=== PATIENT | female | born 1940 | race Caucasian/White ===

== ENCOUNTER 2021-01-19 08:45 | Emergency (ER) | payer MEDICARE | END 2021-01-19 10:47 | disposition home or self-care (01) | LOC: ERS 08:45 | DX: J18.9 Pneumonia, unspecified organism (principal); K76.0 Fatty (change of) liver, not elsewhere classified; I12.9 Hypertensive chronic kidney disease with stage 1 through stage 4 chronic kidney disease, or unspecified chronic kidney disease; N18.9 Chronic kidney disease, unspecified; E03.9 Hypothyroidism, unspecified; G62.9 Polyneuropathy, unspecified | CPT/HCPCS: 76705 ==

== ENCOUNTER 2021-01-22 05:38 | Inpatient (IN) | payer MEDICARE ==
[2021-01-22] MEDS ORDERED: Acetaminophen 325 MG TAB PO PRN (07:31)
[2021-01-22] MEDS ORDERED: Acetaminophen 650 MG Suppository PR PRN (07:31)
[2021-01-22] MEDS ORDERED: Morphine 2 MG/ML VIAL SLOW IVP PRN (08:46)
[2021-01-22] MEDS ORDERED: Aspirin Chewable 81 MG TAB PO SCH (09:00)
[2021-01-22] MEDS ORDERED: Non-Formulary Item 1 EACH (Nebivolol Hcl [Nebivolol Hcl] 10 MG Tablet) PO SCH (09:00)
[2021-01-22] MEDS ORDERED: Enoxaparin Sodium 40 MG/0.4 ML SYRINGE SC SCH (09:00)
[2021-01-22] MEDS ORDERED: Non-Formulary Item 1 EACH (Levothyroxine Sodium [Levothyroxine] 75 MCG Capsule) PO SCH (09:00)
[2021-01-22] MEDS ORDERED: Lactated Ringer's 1,000 ML IV SCH (09:00)
[2021-01-22 09:23] VITALS: BMI 30.4
[2021-01-22] MEDS: Losartan 25 MG TAB PO SCH (09:46)
[2021-01-22] MEDS: Nebivolol HCl 5 MG TAB PO SCH (09:46)
[2021-01-22] MEDS: Ondansetron ODT 4 MG TAB PO PRN (09:47)
[2021-01-22] MEDS: Lactated Ringer's 1,000 ML IV SCH ×2 (10:45→20:34)
[2021-01-22] MEDS ORDERED: hydrALAZINE 20 MG/ML VIAL SLOW IVP PRN (11:05)
[2021-01-22] MEDS ORDERED: FLU VACC QS2021-22(65YR UP)/PF 240 MCG/0.7 ML SYRINGE IM ONE (12:00)
[2021-01-22] MEDS ORDERED: Sodium Chloride 0.9% 10 ML ONE (12:05)
[2021-01-22] MEDS ORDERED: Morphine 4 MG/ML VIAL ONE (12:05)
[2021-01-22] MEDS: Morphine 4 MG/ML VIAL SLOW IVP PRN ×2 (14:14→23:30)
[2021-01-22 15:27] LABS: SARS-CoV-2 NAA Rapid Test DETECTED (NotDetected)
[2021-01-22 18:57] LABS: INR-International Normal Ratio 1.1; Prothrombin Time 14.2 sec (12.0-14.7)
[2021-01-22] MEDS: Ondansetron PF 4 MG/2 ML Vial IVP PRN (20:27)
[2021-01-23] MEDS: Ondansetron PF 4 MG/2 ML Vial IVP PRN (02:53)
[2021-01-23] MEDS: Morphine 4 MG/ML VIAL SLOW IVP PRN ×2 (02:59→06:41)
[2021-01-23] MEDS: Lactated Ringer's 1,000 ML IV SCH ×3 (04:00→09:51)
[2021-01-23] MEDS: Levothyroxine Sodium 75 MCG TAB PO SCH (05:24)
[2021-01-23] MEDS: Nebivolol HCl 5 MG TAB PO SCH (05:25)
[2021-01-23 06:58] LABS: #Eosinphils 0.1 thou/uL (0.0-0.7); #Lymphocytes 1.7 thou/uL (1.20-3.40); #Monocytes 1.4 thou/uL (0.11-0.59); #Neutrophils 14.6 thou/uL (1.40-6.50); %Eosinophils 0.4 % (0.0-10.0); %Lymphocytes 9.6 % (21.0-51.0); %Monocytes 7.7 % (0.0-10.0); %Neutrophils 82.3 % (42.0-75.0); Mean Corpuscular HGB CONC 33.9 g/dL (32.0-36.0); Mean Corpuscular Hemoglobin 28.2 pg (27.0-31.0); Mean Corpuscular Volume 83.3 fL (78.0-98.0); Platelet Count 197 thou/uL (130-400); RBC Distribution Width 12.6 % (11.5-14.5); Red Blood Cell (RBC) Count 4.25 mill/uL (4.20-5.40); White Blood Cell (WBC) Count 17.7 thou/uL (4.8-10.8)
[2021-01-23 07:21] LABS: ALT (SGPT) 8 U/L (8-55); AST (SGOT) 11 U/L (5-34); Albumin 2.9 g/dL (3.4-4.8); Alkaline Phosphatase 53 U/L (40-110); Anion Gap 11 mmol/L (10-20); BUN (Urea Nitrogen) 14 mg/dL (9.8-20.1); Bilirubin, Total 0.8 mg/dL (0.2-1.2); Calc. Creatinine Clearance 52 mL/min (70-130); Calcium 8.9 mg/dL (7.8-10.44); Carbon Dioxide 24 mmol/L (23-31); Chloride 100 mmol/L (98-107); Globulin 3.1 g/dL (2.4-3.5); Glucose 121 mg/dL (83-110); Potassium 3.8 mmol/L (3.5-5.1); Sodium 131 mmol/L (136-145)
[2021-01-23] MEDS: Losartan 25 MG TAB PO SCH (07:59)
[2021-01-23] MEDS ORDERED: Ondansetron PF 4 MG/2 ML Vial ONE (08:08)
[2021-01-23] MEDS ORDERED: Sodium Bicarbonate 2.5 MEQ/5 ML VIAL ONE (08:08)
[2021-01-23] MEDS ORDERED: Midazolam HCl 2 mg/2 ml Vial ONE (08:08)
[2021-01-23] MEDS ORDERED: Fentanyl 100 MCG/2 ML VIAL ONE (08:08)
[2021-01-23] MEDS ORDERED: Enoxaparin Sodium 40 MG/0.4 ML SYRINGE SC SCH (09:00)
[2021-01-23] MEDS ORDERED: Morphine 4 MG/ML VIAL SLOW IVP SCH (10:30)
[2021-01-23] MEDS ORDERED: traMADol HCl 50 MG TAB PO SCH (10:30)
[2021-01-23] MEDS ORDERED: Acetaminophen 650 MG Suppository PR SCH (11:00)
[2021-01-23] MEDS ORDERED: Acetaminophen 325 MG/10.15 ML UDCUP PO SCH (11:15)
[2021-01-23] MEDS: Acetaminophen 325 MG TAB PO SCH ×3 (11:38→23:08)
[2021-01-23] MEDS: Ondansetron ODT 4 MG TAB PO PRN (23:21)
[2021-01-24] MEDS: Levothyroxine Sodium 75 MCG TAB PO SCH (06:03)
[2021-01-24] MEDS: Acetaminophen 325 MG TAB PO SCH ×2 (06:03→11:38)
[2021-01-24] MEDS: Lactated Ringer's 1,000 ML IV SCH (06:03)
[2021-01-24 06:31] LABS: #Eosinphils 0.2 thou/uL (0.0-0.7); #Lymphocytes 1.7 thou/uL (1.20-3.40); #Monocytes 0.6 thou/uL (0.11-0.59); %Basophils 0.3 % (0.0-1.0); %Eosinophils 2.4 % (0.0-10.0); %Lymphocytes 20.3 % (21.0-51.0); %Monocytes 7.5 % (0.0-10.0); %Neutrophils 69.6 % (42.0-75.0); Hemoglobin 11.6 g/dL (12.0-16.0); Mean Corpuscular HGB CONC 33.5 g/dL (32.0-36.0); Mean Corpuscular Hemoglobin 28.3 pg (27.0-31.0); Mean Corpuscular Volume 84.7 fL (78.0-98.0); Mean Platelet Volume 9.2 fL (7.4-10.4); Platelet Count 181 thou/uL (130-400); RBC Distribution Width 12.6 % (11.5-14.5); White Blood Cell (WBC) Count 8.6 thou/uL (4.8-10.8)
[2021-01-24 06:56] LABS: ALT (SGPT) 8 U/L (8-55); AST (SGOT) 10 U/L (5-34); Albumin 2.9 g/dL (3.4-4.8); Alkaline Phosphatase 55 U/L (40-110); Anion Gap 12 mmol/L (10-20); BUN (Urea Nitrogen) 16 mg/dL (9.8-20.1); Bilirubin, Total 0.8 mg/dL (0.2-1.2); Calc. Creatinine Clearance 45 mL/min (70-130); Calcium 8.8 mg/dL (7.8-10.44); Carbon Dioxide 22 mmol/L (23-31); Chloride 100 mmol/L (98-107); Glucose 90 mg/dL (83-110); Potassium 3.9 mmol/L (3.5-5.1); Protein, Total 5.9 g/dL (5.8-8.1); Sodium 130 mmol/L (136-145)
[2021-01-24 07:16] VITALS: TEMP 98
[2021-01-24] MEDS: Losartan 25 MG TAB PO SCH (08:54)
[2021-01-24] MEDS: Nebivolol HCl 5 MG TAB PO SCH (08:54)
[2021-01-24] MEDS ORDERED: Polyethylene Glycol 3350 17 GM Packet PO SCH (10:15)
[2021-01-24 11:47] VITALS: BP 122/71
== END 2021-01-24 16:42 | disposition home health service (06) | DRG 444 ==
LOC: T4-B 07:19 → INTOOBSV 07:19 → OBSVTOIN 01-23 16:52
PROVIDERS: ADMIT Student in an Organized Health Care Education/Training Program; ATTEND Student in an Organized Health Care Education/Training Program
PROC: 8E0ZXY6 Isolation (ICD-10-PCS; 2021-01-23)
PROC: 0F9430Z Drainage of Gallbladder with Drainage Device, Percutaneous Approach (ICD-10-PCS; principal; 2021-01-24)
DX: K81.0 Acute cholecystitis (principal); U07.1 COVID-19; N17.9 Acute kidney failure, unspecified; Z28.21 Immunization not carried out because of patient refusal; N18.30 Chronic kidney disease, stage 3 unspecified; E86.0 Dehydration; M48.8X4 Other specified spondylopathies, thoracic region; M48.8X6 Other specified spondylopathies, lumbar region; E03.9 Hypothyroidism, unspecified; G62.9 Polyneuropathy, unspecified; M51.37 Other intervertebral disc degeneration, lumbosacral region; M47.817 Spondylosis without myelopathy or radiculopathy, lumbosacral region; I12.9 Hypertensive chronic kidney disease with stage 1 through stage 4 chronic kidney disease, or unspecified chronic kidney disease; R91.8 Other nonspecific abnormal finding of lung field; Z88.8 Allergy status to other drugs, medicaments and biological substances; Z79.899 Other long term (current) drug therapy; Z79.82 Long term (current) use of aspirin; Z79.890 Hormone replacement therapy; Z98.49 Cataract extraction status, unspecified eye
CPT/HCPCS: 36415; 49020; 71045; 77002; 78227; 80053; 84145; 85025; 85610; 85730; 87070; 87077; 87205; 96374; 96375; 96376; A9537; C1729; G0378; J0360; J2250; J2270; J2405; J3010; J7120; Q0162; U0002

== ENCOUNTER 2021-02-11 15:17 | Emergency (ER) | payer MEDICARE, OTHER ==
[~2021-02-11 15:17] MED LIST: Iopamidol-370 76% 500 ML 1 ML ONE
[2021-02-11 16:38] LABS: Bilirubin Negative (Negative); Blood, Urine Negative (Negative); Clarity Clear (Clear); Glucose, Urine (Dipstick) Normal (Negative); Ketone, Urine Negative (Negative); Leukocyte Negative Leu/uL (Negative); Nitrite Negative (Negative); Protein, Urine (Dipstick) Negative (Neg-Trace); Specific Gravity, Urine 1.006 (1.002-1.036); Urobilinogen Normal mg/dL (Less than 2)
[2021-02-11 17:38] LABS: #Basophils 0.1 thou/uL (0.0-0.2); #Eosinphils 0.3 thou/uL (0.0-0.7); #Lymphocytes 2.4 thou/uL (1.20-3.40); #Monocytes 0.8 thou/uL (0.11-0.59); #Neutrophils 4.9 thou/uL (1.40-6.50); %Basophils 0.7 % (0.0-1.0); %Eosinophils 3.6 % (0.0-10.0); %Lymphocytes 28.8 % (21.0-51.0); %Monocytes 9.2 % (0.0-10.0); %Neutrophils 57.7 % (42.0-75.0); Hemoglobin 12.9 g/dL (12.0-16.0); Mean Corpuscular HGB CONC 31.9 g/dL (32.0-36.0); Mean Corpuscular Hemoglobin 27.4 pg (27.0-31.0); Mean Corpuscular Volume 85.6 fL (78.0-98.0); Platelet Count 143 thou/uL (130-400); RBC Distribution Width 13.2 % (11.5-14.5); Red Blood Cell (RBC) Count 4.72 mill/uL (4.20-5.40); White Blood Cell (WBC) Count 8.4 thou/uL (4.8-10.8)
[2021-02-11 18:06] LABS: ALT (SGPT) 24 U/L (8-55); AST (SGOT) 28 U/L (5-34); Albumin 3.9 g/dL (3.4-4.8); Alkaline Phosphatase 80 U/L (40-110); Anion Gap 14 mmol/L (10-20); BUN (Urea Nitrogen) 16 mg/dL (9.8-20.1); Bilirubin, Total 0.7 mg/dL (0.2-1.2); Calc. Creatinine Clearance 0 mL/min (70-130); Carbon Dioxide 25 mmol/L (23-31); Chloride 105 mmol/L (98-107); Globulin 3.5 g/dL (2.4-3.5); Glucose 100 mg/dL (83-110); Lipase 19 U/L (8-78); Potassium 4.8 mmol/L (3.5-5.1); Protein, Total 7.4 g/dL (5.8-8.1); Sodium 139 mmol/L (136-145)
== END 2021-02-11 19:43 | disposition home or self-care (01) ==
LOC: ERS 15:17
DX: R10.13 Epigastric pain (principal); I10 Essential (primary) hypertension; E03.9 Hypothyroidism, unspecified; N18.9 Chronic kidney disease, unspecified; Z79.82 Long term (current) use of aspirin; Z79.899 Other long term (current) drug therapy
CPT/HCPCS: 36415; 74177; 80053; 81003; 83690; 85025; 93005; Q9967

== ENCOUNTER 2021-02-14 12:16 | Inpatient (IN) | payer MEDICARE, OTHER ==
[2021-02-14 17:30] LABS: #Eosinphils 0.7 thou/uL (0.0-0.7); #Lymphocytes 1.6 thou/uL (1.20-3.40); #Monocytes 0.6 thou/uL (0.11-0.59); #Neutrophils 4.2 thou/uL (1.40-6.50); %Basophils 0.5 % (0.0-1.0); %Eosinophils 9.8 % (0.0-10.0); %Lymphocytes 22.8 % (21.0-51.0); %Neutrophils 58.8 % (42.0-75.0); Hemoglobin 12.1 g/dL (12.0-16.0); Mean Corpuscular HGB CONC 32.4 g/dL (32.0-36.0); Mean Corpuscular Hemoglobin 27.4 pg (27.0-31.0); Mean Corpuscular Volume 84.6 fL (78.0-98.0); Mean Platelet Volume 10.1 fL (7.4-10.4); Platelet Count 130 thou/uL (130-400); RBC Distribution Width 13.5 % (11.5-14.5); Red Blood Cell (RBC) Count 4.42 mill/uL (4.20-5.40); White Blood Cell (WBC) Count 7.1 thou/uL (4.8-10.8)
[2021-02-14 17:51] LABS: ALT (SGPT) 287 U/L (8-55); AST (SGOT) 195 U/L (5-34); Albumin 3.7 g/dL (3.4-4.8); Alkaline Phosphatase 178 U/L (40-110); Anion Gap 16 mmol/L (10-20); BUN (Urea Nitrogen) 28 mg/dL (9.8-20.1); Bilirubin, Total 2.1 mg/dL (0.2-1.2); Calc. Creatinine Clearance 0 mL/min (70-130); Carbon Dioxide 24 mmol/L (23-31); Chloride 97 mmol/L (98-107); Globulin 3.7 g/dL (2.4-3.5); Glucose 82 mg/dL (83-110); Lipase 10 U/L (8-78); Potassium 4.2 mmol/L (3.5-5.1); Protein, Total 7.4 g/dL (5.8-8.1); Sodium 133 mmol/L (136-145)
[2021-02-14 18:17] LABS: SARS-CoV-2 NAA Rapid Test Not Detected (NotDetected)
[2021-02-14] MEDS ORDERED: Acetaminophen 325 MG TAB PO PRN (18:55)
[2021-02-14] MEDS ORDERED: Ondansetron ODT 4 MG TAB PO PRN (18:55)
[2021-02-14] MEDS ORDERED: Ondansetron PF 4 MG/2 ML Vial IVP PRN (18:55)
[2021-02-14] MEDS ORDERED: Acetaminophen 650 MG Suppository PR PRN (18:55)
[2021-02-14] MEDS ORDERED: diphenhydrAMINE 50 MG/ML VIAL IVP SCH (20:15)
[2021-02-14] MEDS ORDERED: Morphine 4 MG/ML VIAL SLOW IVP PRN (20:32)
[2021-02-14] MEDS ORDERED: Lactated Ringer's 1,000 ML IV SCH (20:45)
[2021-02-14 20:49] VITALS: BMI 28.8
[2021-02-14] MEDS: Lactated Ringer's 1,000 ML IV SCH (20:59)
[2021-02-14] MEDS ORDERED: Piperacillin/Tazobactam 3.375 GM in Sodium Chloride 0.9% 100 ML IVPB SCH (21:30)
[2021-02-15] MEDS: Piperacillin/Tazobactam 3.375 GM in Sodium Chloride 0.9% 100 ML IVPB SCH ×2 (03:05→12:39)
[2021-02-15] MEDS: Levothyroxine Sodium 75 MCG TAB PO SCH (05:43)
[2021-02-15 06:01] LABS: #Eosinphils 0.6 thou/uL (0.0-0.7); #Lymphocytes 1.6 thou/uL (1.20-3.40); #Monocytes 0.6 thou/uL (0.11-0.59); #Neutrophils 3.3 thou/uL (1.40-6.50); %Basophils 0.7 % (0.0-1.0); %Eosinophils 9.8 % (0.0-10.0); %Lymphocytes 25.6 % (21.0-51.0); %Neutrophils 53.9 % (42.0-75.0); Hemoglobin 11.3 g/dL (12.0-16.0); Mean Corpuscular HGB CONC 33.5 g/dL (32.0-36.0); Mean Corpuscular Hemoglobin 28.4 pg (27.0-31.0); Mean Corpuscular Volume 84.6 fL (78.0-98.0); Mean Platelet Volume 10.5 fL (7.4-10.4); Platelet Count 124 thou/uL (130-400); RBC Distribution Width 13.4 % (11.5-14.5); Red Blood Cell (RBC) Count 3.99 mill/uL (4.20-5.40); White Blood Cell (WBC) Count 6.2 thou/uL (4.8-10.8)
[2021-02-15 06:19] LABS: ALT (SGPT) 211 U/L (8-55); AST (SGOT) 127 U/L (5-34); Albumin 3.1 g/dL (3.4-4.8); Alkaline Phosphatase 134 U/L (40-110); Anion Gap 16 mmol/L (10-20); BUN (Urea Nitrogen) 30 mg/dL (9.8-20.1); Bilirubin, Total 1.4 mg/dL (0.2-1.2); Calc. Creatinine Clearance 20 mL/min (70-130); Calcium 9.2 mg/dL (7.8-10.44); Carbon Dioxide 21 mmol/L (23-31); Chloride 101 mmol/L (98-107); Globulin 3.1 g/dL (2.4-3.5); Glucose 71 mg/dL (83-110); Potassium 3.9 mmol/L (3.5-5.1); Protein, Total 6.2 g/dL (5.8-8.1); Sodium 134 mmol/L (136-145)
[2021-02-15] MEDS: Lactated Ringer's 1,000 ML IV SCH ×3 (06:26→15:44)
[2021-02-15] MEDS: Aspirin Chewable 81 MG TAB PO SCH (08:19)
[2021-02-15] MEDS ORDERED: Nebivolol HCl 5 MG TAB PO SCH ×2 (09:00→21:00)
[2021-02-15] MEDS ORDERED: Losartan 25 MG TAB PO SCH (09:00)
[2021-02-15 15:30] LABS: Bacteria/HPF 1+ HPF (None Seen); Bilirubin Negative (Negative); Blood, Urine Trace (Negative); Clarity Clear (Clear); Glucose, Urine (Dipstick) Normal (Negative); Ketone, Urine 40 mg/dL (Negative); Leukocyte 25 Leu/uL (Negative); Nitrite Negative (Negative); Protein, Urine (Dipstick) Negative (Neg-Trace); Specific Gravity, Urine 1.014 (1.002-1.036); Squamous Epithelial 0-3 HPF (0-3); Urobilinogen Normal mg/dL (Less than 2); pH, Urine 5.5 (5.0-9.0)
[2021-02-15 15:33] LABS: Urine Culture Reflex Yes Yes
[2021-02-15 15:43] LABS: Creatinine, Urine 81.67 mg/dL (47-110)
[2021-02-15 17:01] LABS: Anion Gap 17 mmol/L (10-20); BUN (Urea Nitrogen) 29 mg/dL (9.8-20.1); Calc. Creatinine Clearance 21 mL/min (70-130); Calcium 9.4 mg/dL (7.8-10.44); Carbon Dioxide 22 mmol/L (23-31); Chloride 102 mmol/L (98-107); Glucose 66 mg/dL (83-110); Potassium 3.9 mmol/L (3.5-5.1); Sodium 137 mmol/L (136-145)
[2021-02-15] MEDS: Nebivolol HCl 5 MG TAB PO SCH (19:57)
[2021-02-16] MEDS: Lactated Ringer's 1,000 ML IV SCH ×3 (01:56→11:58)
[2021-02-16] MEDS: Piperacillin/Tazobactam 3.375 GM in Sodium Chloride 0.9% 100 ML IVPB SCH ×2 (01:57→14:36)
[2021-02-16] MEDS: Levothyroxine Sodium 75 MCG TAB PO SCH (05:10)
[2021-02-16 05:35] LABS: Hemoglobin 11.9 g/dL (12.0-16.0); Mean Corpuscular HGB CONC 32.9 g/dL (32.0-36.0); Mean Corpuscular Hemoglobin 28.2 pg (27.0-31.0); Mean Corpuscular Volume 85.7 fL (78.0-98.0); Mean Platelet Volume 9.9 fL (7.4-10.4); Platelet Count 142 thou/uL (130-400); RBC Distribution Width 13.6 % (11.5-14.5); Red Blood Cell (RBC) Count 4.22 mill/uL (4.20-5.40); White Blood Cell (WBC) Count 6.4 thou/uL (4.8-10.8)
[2021-02-16 06:01] LABS: ALT (SGPT) 174 U/L (8-55); AST (SGOT) 89 U/L (5-34); Albumin 3.2 g/dL (3.4-4.8); Alkaline Phosphatase 121 U/L (40-110); Anion Gap 16 mmol/L (10-20); BUN (Urea Nitrogen) 21 mg/dL (9.8-20.1); Calc. Creatinine Clearance 26 mL/min (70-130); Calcium 9.4 mg/dL (7.8-10.44); Carbon Dioxide 20 mmol/L (23-31); Chloride 103 mmol/L (98-107); Globulin 3.3 g/dL (2.4-3.5); Glucose 77 mg/dL (83-110); Potassium 3.9 mmol/L (3.5-5.1); Protein, Total 6.5 g/dL (5.8-8.1); Sodium 135 mmol/L (136-145)
[2021-02-16] MEDS: Sodium Bicarbonate Tab 325 MG TAB PO SCH ×3 (08:06→20:38)
[2021-02-16] MEDS: Aspirin Chewable 81 MG TAB PO SCH (08:07)
[2021-02-16] MEDS ORDERED: Amlodipine 5 MG TAB PO SCH (15:30)
[2021-02-16] MEDS: Nebivolol HCl 5 MG TAB PO SCH (20:38)
[2021-02-17] MEDS: Piperacillin/Tazobactam 3.375 GM in Sodium Chloride 0.9% 100 ML IVPB SCH ×2 (02:58→14:15)
[2021-02-17] MEDS: Lactated Ringer's 1,000 ML IV SCH ×3 (03:00→16:14)
[2021-02-17] MEDS: Levothyroxine Sodium 75 MCG TAB PO SCH (06:05)
[2021-02-17 06:17] LABS: ALT (SGPT) 113 U/L (8-55); AST (SGOT) 49 U/L (5-34); Albumin 2.9 g/dL (3.4-4.8); Alkaline Phosphatase 97 U/L (40-110); Anion Gap 12 mmol/L (10-20); BUN (Urea Nitrogen) 11 mg/dL (9.8-20.1); Bilirubin, Total 0.8 mg/dL (0.2-1.2); Calc. Creatinine Clearance 42 mL/min (70-130); Calcium 8.8 mg/dL (7.8-10.44); Carbon Dioxide 24 mmol/L (23-31); Chloride 107 mmol/L (98-107); Glucose 98 mg/dL (83-110); Potassium 3.7 mmol/L (3.5-5.1); Protein, Total 5.9 g/dL (5.8-8.1); Sodium 139 mmol/L (136-145)
[2021-02-17] MEDS ORDERED: Amlodipine 5 MG TAB PO SCH ×2 (09:00→16:15)
[2021-02-17] MEDS ORDERED: Bupivacaine 0.25% 10 ML VIAL ONE (10:02)
[2021-02-17] MEDS ORDERED: Lidocaine 1% w/Epinephrine 1:100K 20 ML VIAL ONE (10:02)
[2021-02-17] MEDS ORDERED: SUGAMMADEX SODIUM 200 MG/2 ML VIAL ONE (10:03)
[2021-02-17] MEDS ORDERED: Fentanyl 100 MCG/2 ML VIAL ONE ×2 (10:03→12:49)
[2021-02-17] MEDS ORDERED: Iothalamate Meglumine 60% 50 ML VIAL FS ONE (10:14)
[2021-02-17] MEDS ORDERED: Metoprolol Tartrate 5 MG/5 ML VIAL ONE (11:16)
[2021-02-17] MEDS ORDERED: Glycopyrrolate 0.2 MG/ML 5 ML SYRINGE ONE (11:16)
[2021-02-17] MEDS ORDERED: Ondansetron PF 4 MG/2 ML Vial ONE (11:16)
[2021-02-17] MEDS ORDERED: Lidocaine 1% PF 5 ML VIAL ONE (11:16)
[2021-02-17] MEDS ORDERED: PROPOFOL 200 MG/20 ML VIAL ONE (11:16)
[2021-02-17] MEDS ORDERED: Rocuronium Bromide 10 MG/ML (10ML VIAL) ONE (11:16)
[2021-02-17] MEDS ORDERED: Labetalol HCl 100 MG/20 ML VIAL ONE (11:16)
[2021-02-17] MEDS ORDERED: Dexamethasone 20 MG/5 ML VIAL ONE (11:16)
[2021-02-17] MEDS ORDERED: Ondansetron HCl/PF 4 MG/2 ML Vial IVP PRN (12:04)
[2021-02-17] MEDS ORDERED: Promethazine HCl 25 MG/ML VIAL IM PRN (12:04)
[2021-02-17] MEDS ORDERED: Promethazine HCl 25 MG/ML VIAL IVPB PRN (12:04)
[2021-02-17] MEDS ORDERED: HYDROcodone/Acetaminophen 5/325 mg Tablet PO PRN (12:05)
[2021-02-17] MEDS ORDERED: hydrALAZINE 20 MG/ML VIAL ONE ×2 (13:05→13:23)
[2021-02-17] MEDS: Aspirin Chewable 81 MG TAB PO SCH (14:11)
[2021-02-17] MEDS: Sodium Bicarbonate Tab 325 MG TAB PO SCH ×3 (14:11→21:23)
[2021-02-17] MEDS: Morphine 4 MG/ML VIAL SLOW IVP PRN ×3 (14:13→23:30)
[2021-02-17] MEDS: Nebivolol HCl 5 MG TAB PO SCH (21:23)
[2021-02-18] MEDS: Chloraseptic Spray 180 ml Bottle PO PRN ×2 (00:55→06:39)
[2021-02-18] MEDS: Lactated Ringer's 1,000 ML IV SCH ×2 (00:55→11:57)
[2021-02-18] MEDS: Piperacillin/Tazobactam 3.375 GM in Sodium Chloride 0.9% 100 ML IVPB SCH (01:58)
[2021-02-18] MEDS: Levothyroxine Sodium 75 MCG TAB PO SCH (06:38)
[2021-02-18 07:32] LABS: ALT (SGPT) 116 U/L (8-55); AST (SGOT) 86 U/L (5-34); Albumin 2.8 g/dL (3.4-4.8); Alkaline Phosphatase 82 U/L (40-110); Anion Gap 15 mmol/L (10-20); BUN (Urea Nitrogen) 9 mg/dL (9.8-20.1); Bilirubin, Total 0.7 mg/dL (0.2-1.2); Calc. Creatinine Clearance 46 mL/min (70-130); Calcium 8.5 mg/dL (7.8-10.44); Carbon Dioxide 22 mmol/L (23-31); Chloride 105 mmol/L (98-107); Globulin 3.4 g/dL (2.4-3.5); Glucose 94 mg/dL (83-110); Protein, Total 6.2 g/dL (5.8-8.1); Sodium 137 mmol/L (136-145)
[2021-02-18 08:21] VITALS: BP 122/67; TEMP 98.1
[2021-02-18] MEDS: Sodium Bicarbonate Tab 325 MG TAB PO SCH (08:31)
[2021-02-18] MEDS: Aspirin Chewable 81 MG TAB PO SCH (08:32)
[2021-02-18] MEDS ORDERED: Amlodipine 5 MG TAB PO SCH (09:00)
[2021-02-18 11:16] LABS: #Basophils 0.1 thou/uL (0.0-0.2); #Eosinphils 0.1 thou/uL (0.0-0.7); #Lymphocytes 1.7 thou/uL (1.20-3.40); #Monocytes 0.7 thou/uL (0.11-0.59); #Neutrophils 5.4 thou/uL (1.40-6.50); %Basophils 0.7 % (0.0-1.0); %Neutrophils 67.4 % (42.0-75.0); Hemoglobin 10.5 g/dL (12.0-16.0); Mean Corpuscular HGB CONC 31.4 g/dL (32.0-36.0); Mean Corpuscular Hemoglobin 26.8 pg (27.0-31.0); Mean Corpuscular Volume 85.2 fL (78.0-98.0); Mean Platelet Volume 10.1 fL (7.4-10.4); Platelet Count 122 thou/uL (130-400); RBC Distribution Width 13.8 % (11.5-14.5); Red Blood Cell (RBC) Count 3.93 mill/uL (4.20-5.40); White Blood Cell (WBC) Count 7.9 thou/uL (4.8-10.8)
== END 2021-02-18 12:04 | disposition home or self-care (01) | DRG 417 ==
LOC: ERS 12:16 → T4-B 17:56
PROVIDERS: ADMIT Family Medicine; ATTEND Internal Medicine
PROC: 0FT44ZZ Resection of Gallbladder, Percutaneous Endoscopic Approach (ICD-10-PCS; principal; 2021-02-17)
PROC: BF101ZZ Fluoroscopy of Bile Ducts using Low Osmolar Contrast (ICD-10-PCS; 2021-02-17)
DX: K80.42 Calculus of bile duct with acute cholecystitis without obstruction (principal); N17.0 Acute kidney failure with tubular necrosis; E87.2 Acidosis; E87.1 Hypo-osmolality and hyponatremia; N39.0 Urinary tract infection, site not specified; E03.9 Hypothyroidism, unspecified; G62.9 Polyneuropathy, unspecified; I12.9 Hypertensive chronic kidney disease with stage 1 through stage 4 chronic kidney disease, or unspecified chronic kidney disease; E86.0 Dehydration; M47.817 Spondylosis without myelopathy or radiculopathy, lumbosacral region; R32 Unspecified urinary incontinence; Z20.822 Contact with and (suspected) exposure to COVID-19; K21.9 Gastro-esophageal reflux disease without esophagitis; N18.30 Chronic kidney disease, stage 3 unspecified; D63.1 Anemia in chronic kidney disease; Z90.710 Acquired absence of both cervix and uterus; Z88.8 Allergy status to other drugs, medicaments and biological substances; Z79.82 Long term (current) use of aspirin; Z79.899 Other long term (current) drug therapy
CPT/HCPCS: 36415; 47532; 74177; 74181; 80053; 81001; 81003; 82550; 82570; 83690; 84156; 84300; 85025; 85027; 87086; 88304; 93005; 93010; C1713; J0360; J1100; J1200; J2270; J2405; J2543; J2704; J3010; J3490; J7120; J7620; Q9961-U8; Q9967; S0020; U0002